=== PATIENT | male | born 1960 | race Caucasian/White ===

== ENCOUNTER → 2022-05-13 10:58 | Outpatient (CLI) | payer BC, SELFPAY ==
--- NOTE | ~2022-05-13 | CT_ITS ---
EXAMINATION: CT chest abdomen w con DATE: 05/13/2022 11:49 INDICATION: Weight loss. Hives. TECHNIQUE: Computed tomography (CT) of the chest and abdomen was performed with 100 mL Omnipaque 350 intravenous contrast. Automated exposure control and iterative reconstruction technique were employed . The dose-length product was 763.55 mGy-cm. COMPARISON: None FINDINGS: CHEST CT: The lungs demonstrate mild atelectasis. Calcified bilateral lung nodules and calcified right hilar ly mph nodes are consistent with old granulomatous disease. No pleural effusion. The heart size is fabio l. There are coronary artery calcifications. No pericardial effusion. There is severe cervical spondy losis and mild thoracic spondylosis. There is mild chronic anterior wedging of multiple vertebral bod ies. ABDOMEN CT: The liver, gallbladder, spleen, pancreas, adrenal glands, and kidneys are normal. There are no dilate d loops of bowel. The appendix is normal. There is no free intraperitoneal fluid. There are no patho logically enlarged lymph nodes. There is severe lower lumbar spondylosis. IMPRESSION: 1. No etiology for the patient's symptoms. Reviewed, dictated and finalized at location A.
[2022-05-13 11:39] LABS: Estimated Glomerular Filt Rate > 60
== END ==
PROVIDERS: PCP Emergency Medicine; Visit Provider Emergency Medicine
DX: R63.4 Abnormal weight loss (principal)
CPT/HCPCS: 71260; 74160; Q9967

== ENCOUNTER 2024-12-11 16:21 | Outpatient (CLI) | payer MEDICARE, BC, SELFPAY ==
--- NOTE | ~2024-12-11 | XR_ITS ---
Right Knee Technique: AP, lateral, and sunrise views were obtained. Clinical History: Osteoarthritis Findings: No fracture or dislocation is seen. Osseous alignment is anatomic. There is mild tricompart mental degenerative change. Possible loose body posterior to the knee, possibly within a Quan's cyst , measuring 14 mm. No joint effusion is seen. Impression: Mild tricompartmental degenerative change. Possible 14 mm posterior loose body, possibly within a Quan's cyst. Reviewed, dictated and finalized at location . Impression: Mild tricompartmental degenerative change. Possible 14 mm posterior loose body, possibly within a Quan's cyst.
--- NOTE | ~2024-12-11 | XR_ITS ---
Left Knee Technique: AP, lateral, and sunrise views were obtained. Clinical History: Osteoarthritis Findings: No fracture or dislocation is seen. Osseous alignment is anatomic. There is mild to moderat e tricompartmental degenerative joint disease. Soft tissues are unremarkable. No joint effusion is se en. Impression: Mild to moderate tricompartmental degenerative joint disease. Reviewed, dictated and finalized at location . Impression: Mild to moderate tricompartmental degenerative joint disease.
== END 2024-12-11 16:22 | disposition home or self-care (01) ==
PROVIDERS: PCP Emergency Medicine; Visit Provider Emergency Medicine
DX: M17.0 Bilateral primary osteoarthritis of knee (principal)
CPT/HCPCS: 73564